=== PATIENT | female | born 1965 | race Caucasian/White ===

== ENCOUNTER 2017-06-18 18:41 | Observation (INO) | payer OTHER ==
[~2017-06-18] VITALS: Ht 165.1 cm; Wt 65.7 kg
[~2017-06-18 18:41] MED LIST: ANUSOL1 SUPP PR; COLACE100 MG PO
[2017-06-18 19:39] LABS: HEMATOCRIT 40.2 % (36.0-46.0); HEMOGLOBIN 13.5 G/DL (11.9-15.5); MCH 28.9 PG (29.0-34.0); MCHC 33.6 G/DL (30.0-36.0); MCV 86.1 FL (83-99); RBC DIS.WIDTH-CV 12.7 % (11.8-14.6); RBC DIS.WIDTH-SD 39.6 % (39-53); RED BLOOD COUNT 4.67 M/uL (3.80-5.20); WHITE BLOOD COUNT 11.7 K/uL (4.1-10.2)
[2017-06-18 19:50] LABS: CHLORIDE 104 mEq/L (99-109); POTASSIUM 3.9 mEq/L (3.7-5.4); SODIUM 139 mEq/L (136-147)
[2017-06-18 19:51] LABS: GLUCOSE 87 mg/dL (70-99)
[2017-06-18 19:55] LABS: CREATININE 0.7 mg/dL (0.6-1.3); GFR ESTIMATE (CALCULATED) > 59 mL/min/
[2017-06-18 19:56] LABS: UREA NITROGEN (BUN) 14 mg/dL (9-23)
[2017-06-18 20:03] LABS: TROP-I INTERPRETATION NEGATIVE; TROPONIN-I < 0.01 ng/mL (0.0-0.30)
[2017-06-18 20:45] LABS: PLATELET COUNT 252 K/uL (156-360)
[2017-06-18] MEDS ORDERED: ESOMEPRAZOLE MA40 MG PO (21:25)
[2017-06-18] MEDS ORDERED: PAROXETINE7.5 MG PO (21:27)
[2017-06-18] MEDS ORDERED: ATORVASTATIN CA10 MG PO (21:27)
[2017-06-18] MEDS ORDERED: MONTELUKAST SOD10 MG PO (21:28)
[2017-06-18] MEDS ORDERED: GUMMI BEAR MUL1 EACH PO (21:30)
[2017-06-18] MEDS ORDERED: CALTRATE 600+D1 EAC1 PO (21:31)
[2017-06-18 21:58] LABS: TROP-I INTERPRETATION NEGATIVE; TROPONIN-I < 0.01 ng/mL (0.0-0.30)
[2017-06-19 00:01] LABS: ALBUMIN 4.4 g/dL (3.2-4.8)
[2017-06-19 00:04] LABS: TOTAL PROTEIN 7.6 g/dL (6.4-8.3)
[2017-06-19 00:06] LABS: TOTAL BILIRUBIN 0.4 mg/dL (0.0-1.0)
[2017-06-19 00:07] LABS: ALKALINE PHOSPHATASE 94 IU/L (3-129)
[2017-06-19 00:09] LABS: AST (GOT) 19 IU/L (2-34); DIRECT BILIRUBIN 0.2 mg/dL (0.0-0.3)
[2017-06-19 00:10] LABS: ALT (GPT) 21 IU/L (3-49); LIPASE 43 U/L (1.0-51.0)
[2017-06-19 00:15] VITALS: BP 135/71
[2017-06-19 01:50] LABS: TROP-I INTERPRETATION NEGATIVE; TROPONIN-I < 0.01 ng/mL (0.0-0.30)
[2017-06-19 05:09] VITALS: BP 122/69
[2017-06-19 06:52] LABS: HEMATOCRIT 39.8 % (36.0-46.0); HEMOGLOBIN 13.1 G/DL (11.9-15.5); MCH 28.5 PG (29.0-34.0); MCHC 32.9 G/DL (30.0-36.0); MCV 86.7 FL (83-99); PLATELET COUNT 237 K/uL (156-360); RBC DIS.WIDTH-SD 40.7 % (39-53); RED BLOOD COUNT 4.59 M/uL (3.80-5.20); WHITE BLOOD COUNT 7.7 K/uL (4.1-10.2)
[2017-06-19 07:10] LABS: TROP-I INTERPRETATION NEGATIVE; TROPONIN-I < 0.01 ng/mL (0.0-0.30)
[2017-06-19 07:16] LABS: CHLORIDE 107 MEQ/L (99-109); CREATININE 0.7 MG/DL (0.6-1.3); GFR ESTIMATE (CALCULATED) > 59 mL/min/; GLUCOSE 90 mg/dL (70-99); POTASSIUM 4.2 MEQ/L (3.7-5.4); SODIUM 144 MEQ/L (136-147); UREA NITROGEN (BUN) 13 mg/dL (9-23)
[2017-06-19 08:53] VITALS: BP 124/82
[2017-06-19 10:00] LABS: THYROTROPIN (TSH) 1.9 MIU/L (0.4-5.5)
[2017-06-19 11:45] VITALS: BP 132/69
[2017-06-19] MEDS ORDERED: ASPIR-LOW81 MG PO (15:01)
== END 2017-06-19 16:20 | disposition home or self-care (01) ==
LOC: EME 18:41 → 4EAST 23:32 → EDOF 23:32 → 4EAST 23:32 → ENRESERV 23:33 → 4EAST 06-19 00:46
PROVIDERS: Hospitalist; Physician Assistant
DX: R07.9 Chest pain, unspecified (principal); I47.2 Ventricular tachycardia; E78.5 Hyperlipidemia, unspecified; K21.9 Gastro-esophageal reflux disease without esophagitis; M79.602 Pain in left arm; R20.2 Paresthesia of skin; Z82.49 Family history of ischemic heart disease and other diseases of the circulatory system; Z90.710 Acquired absence of both cervix and uterus; Z83.3 Family history of diabetes mellitus; Z88.5 Allergy status to narcotic agent
CPT/HCPCS: 71046; 80048; 80076; 83690; 83735; 84443; 84484; 85027; 93005; 93306; 99281; 99285; G0378; J2270; J2405